=== PATIENT | female | born 1995 | race American Indian/Alaskan Native ===

== ENCOUNTER 2016-07-16 01:30 | Emergency (ER) | payer SELFPAY ==
--- NOTE | 2016-07-16 04:47 | Emergency Department Report ---
[facility] Chief Complaint: Eye Problems Stated Complaint: BLURRED VISION/IRRITATED EYES Time Seen by Provider: 07/16/16 03:47 Duration: Today Side: Bilateral Severity: moderate Symptoms: Yes Eye Itching, Yes Eye Redness, Yes Eye Pain, No Mucous Drainage, No Purulent Drainage, No Blurred Vision, No Preceding URI, No H/O Allergic Rhinitis, No Contact Lens Use, No Trauma Other History: 21-year-old female past medical history none presents with complaint of removing makeup and accidentally getting soap in her eyes which subsequently irritated her eyes. Patient complaining of slightly blurry vision watery teary eyes and conjunctival redness. Denies any other complaints. Overall vision 20/20 on my clinical exam. ED Review of Systems ROS: Stated complaint: BLURRED VISION/IRRITATED EYES Other details as noted in HPI Constitutional: denies: chills, fever Eyes: eye discharge (slightly blurry vision). denies: eye pain, vision change ENT: denies: ear pain, throat pain Respiratory: denies: cough, shortness of breath, wheezing Cardiovascular: denies: chest pain, palpitations Endocrine: no symptoms reported Gastrointestinal: denies: abdominal pain, nausea, diarrhea Genitourinary: denies: urgency, dysuria, discharge Musculoskeletal: denies: back pain, joint swelling, arthralgia Skin: denies: rash, lesions Neurological: denies: headache, weakness, paresthesias Psychiatric: denies: anxiety, depression Hematological/Lymphatic: denies: easy bleeding, easy bruising ED Past Medical Hx - Past Medical History Previous Medical History?: No - Surgical History Past Surgical History?: No - Social History Smoking Status: Former Smoker Substance Use Type: None - Medications Home Medications: Home Medications Medication Instructions Recorded Confirmed Last Taken Type Ibuprofen [Motrin] 600 mg PO Q8H PRN #25 tablet 07/16/16 Unknown Rx Polyvinyl Alcohol/Povidone 15 ml OP Q4H PRN #1 bottle 07/16/16 Unknown Rx [Artificial Tears Drops] Tobramycin 0.3% [Tobrex] 1 drop OU Q8HR #1 bottle 07/16/16 Unknown Rx [facility] Exam - Exam General: Vital signs noted. No distress. Alert and acting appropriately. Eye Exam: Both Injection, Both Chemosis, Neither Abnormal Pupil, Neither EOMI, Neither Eye Foreign Body, Neither Lid Foreign Body, Neither Mucous Discharge, Neither Purulent Discharge, Neither Fluorescein Uptake, Neither Photophobia HEENT: No Nasal Congestion, No Pharyngeal Erythema Remainder of HEENT: Normal Lungs: No Clear Lung Sounds, No Good Air Exchange, No Wheezes, No Stridor, No Cough, No Nasal Flaring, No Retractions, No Use of Accessory Muscles ED Course Vital Signs 07/16/16 01:43 Temperature 99.1 F Pulse Rate 91 H Respiratory 18 Rate Blood Pressure 139/92 O2 Sat by Pulse 98 Oximetry ED Medical Decision Making - Medical Decision Making A/P: Chemical conjunctivitis 1-eyes irrigated thoroughly with tap water and normal saline 2-patient experienced significant relief after irrigation with normal saline approximately 500 mL both eyes 3-patient given follow-up with ophthalmology 4-vision is 20/20 both before and after irrigation 5- cover patient empirically for any corneal irritation with tobramycin drops Critical care attestation.: If time is entered above; I have spent that time in minutes in the direct care of this critically ill patient, excluding procedure time. ED Disposition Clinical Impression: Conjunctivitis Qualifiers: Conjunctivitis type: acute Acute conjunctivitis type: unspecified Laterality: bilateral Qualified Code(s): H10.33 - Unspecified acute conjunctivitis, bilateral Disposition: DISCHARGED TO HOME OR SELFCARE Is pt being admited?: No Does the pt Need Aspirin: No Condition: Stable Instructions: Chemical [facility] (ED), Conjunctivitis (ED) Prescriptions: Ibuprofen [Motrin] 600 mg PO Q8H PRN #25 tablet PRN Reason: Pain Polyvinyl Alcohol/Povidone [Artificial Tears Drops] 15 ml OP Q4H PRN #1 bottle PRN Reason: Itching Tobramycin 0.3% [Tobrex] 1 drop OU Q8HR #1 bottle Referrals: MELE LAYTON MD [Staff Physician] - 3-5 Days Forms: Work/School Release Form(ED) Time of Disposition: 04:53
[2016-07-16 05:03] VITALS: BP 132/88
== END 2016-07-16 05:03 | disposition home or self-care (01) ==
LOC: ED 01:30
DX: H10.33 Unspecified acute conjunctivitis, bilateral (principal); Z87.891 Personal history of nicotine dependence
CPT/HCPCS: 99283